=== PATIENT | female | born 1985 | race Caucasian/White ===

== ENCOUNTER 2019-07-03 03:01 | Emergency (ER) | payer OTHER ==
--- NOTE | 2019-07-03 07:00 | ER Document Report ---
ED Respiratory Problem - General Chief Complaint: Cough Stated Complaint: PERSISTENT COUGH WITH SHORTNESS OF BREATH Time Seen by Provider: 07/03/19 06:06 Mode of Arrival: Ambulatory Information source: Patient Notes: 34-year-old woman presents to the emergency department with episodes of cough and apparently awoke from her sleep with a coughing episode which lasted for approximately 5 minutes. She states that she felt as though she could not get her breath. She has been having some postnasal drainage and "allergy" symptoms. She denies any associated fever, chest discomfort or productive process. She has been taking Mucinex and states that the symptoms have not improved. Past Medical History - Social History Smoking Status: Never Smoker Family History: Reviewed & Not Pertinent Patient has suicidal ideation: No Patient has homicidal ideation: No Psychiatric Medical History: Reports: Hx Bipolar Disorder Past Surgical History: Reports: Hx Oral Surgery - wisdom teeth Review of Systems - Review of Systems Notes: Constitutional: Negative for fever. HENT: Negative for sore throat. Eyes: Negative for visual changes. Cardiovascular: Negative for chest pain. Respiratory: + Cough, + shortness of breath. Gastrointestinal: Negative for abdominal pain, vomiting or diarrhea. Genitourinary: Negative for dysuria. Musculoskeletal: Negative for back pain. Skin: Negative for rash. Neurological: Negative for headaches, weakness or numbness. 10 point ROS negative except as marked above and in HPI. Physical Exam - Vital signs Vitals: Temp Pulse Resp BP Pulse Ox 98.7 F 82 20 150/85 H 96 07/03/19 03:12 07/03/19 03:12 07/03/19 03:12 07/03/19 03:12 07/03/19 03:12 - Notes Notes: PHYSICAL EXAMINATION: Physical Exam: General: Well-nourished well-developed woman in no acute distress HEENT: NC/AT, pupils equal round and reactive to light, MM moist,nares clear, Neck: supple, no adenopathy, no masses. Lungs: clear, no wheezing, no rales, no rhonchi CVS: Regular rate and rhythm no murmur gallop or rub Abdomen: Soft active nontender, no masses, no hepatosplenomegaly Ext: No edema clubbing or cyanosis. Neuro: Alert and responsive, moving all 4 extremities on command, cranial nerves intact. Skin: Intact no open lesions, no rash PSYCH: Normal mood, normal affect. Course - Re-evaluation Re-evalutation: 07/03/19 06:58 Patient states she feels fine and was somewhat worried about the cough episode, she is ready to go, I have suggested that she try Claritin-D or Zyrtec-D for her allergy and postnasal drainage symptoms. Also sleeping with her head at an elevated neck level may help also. The patient acknowledges understanding of this plan and states he is ready to be discharge. - Vital Signs Vital signs: Temp Pulse Resp BP Pulse Ox 97.9 F 71 16 129/81 H 97 07/03/19 07:12 07/03/19 07:12 07/03/19 07:12 07/03/19 07:12 07/03/19 07:12 Discharge - Discharge Clinical Impression: Postnasal drip, Cough in adult patient Condition: Good Disposition: HOME, SELF-CARE Additional Instructions: You had a coughing episode which may be related to postnasal drainage. Using a antihistamine decongestant medication like Claritin-D or Zyrtec-D may be a more useful treatment. Also elevating your head at a 15 to 20 degree angle when lying down will also reduce the risks of increased cough. If your symptoms are worsening it may be a good idea to follow-up with your primary care doctor or if your symptoms are severe return to the emergency department for further evaluation and treatment. Forms: Return to Work
[2019-07-03 07:13] VITALS: BP 129/81
== END 2019-07-03 07:13 | disposition home or self-care (01) ==
LOC: ER 03:01
DX: R09.82 Postnasal drip (principal); R05 Cough; R06.02 Shortness of breath
CPT/HCPCS: 99283